=== PATIENT | female | born 1950 | race Caucasian/White ===

== ENCOUNTER 2017-11-10 18:28 | Emergency (ER) | payer MEDICARE, OTHER ==
[2017-11-10 18:51] VITALS: RESP 20; TEMP 96.8
[2017-11-10 20:55] VITALS: BP 104/66; PULSE 96; O2SAT 96
== END 2017-11-10 20:28 | disposition home or self-care (01) | DRG 914 ==
LOC: ED 18:28
DX: S09.90XA Unspecified injury of head, initial encounter (principal); S62.327A Displaced fracture of shaft of fifth metacarpal bone, left hand, initial encounter for closed fracture; W10.9XXA Fall (on) (from) unspecified stairs and steps, initial encounter
CPT/HCPCS: 70450; 73140; 99283

== ENCOUNTER 2017-11-11 04:19 | Emergency (ER) | payer MEDICARE, OTHER ==
[2017-11-11 05:15] LABS: BASOPHILS % (AUTO) 1 % (0-3); EOSINOPHILS % (AUTO) 1 % (0-9); HEMATOCRIT 35 % (35-47); MEAN CORPUSCULAR HGB CONC 34.8 gm/dl (32.0-36.0); MEAN CORPUSCULAR VOLUME 90 fL (81-99); MONOCYTES % (AUTO) 5.6 % (0-12); NEUTROPHILS % (AUTO) 70.1 % (37-80)
[2017-11-11 05:19] LABS: ALBUMIN 3.2 gm/dl (3.4-5.0); ALKALINE PHOSPHATASE 70 IU/L (46-116); ALT 17 IU/L (14-63); AST 10 IU/L (15-37); BILIRUBIN,TOTAL 0.4 mg/dl (0.2-1.0); BLOOD UREA NITROGEN 29 mg/dl (7-18); CALCIUM 8.3 mg/dl (8.5-10.1); CREATININE 1.12 mg/dl (0.60-1.00); GLOM FILT RATE 49 mL/min (>60); GLUCOSE 136 mg/dl (74-106); POTASSIUM 3.8 mMol/L (3.5-5.1); SODIUM 136 mMol/L (136-145)
[2017-11-11 05:34] VITALS: TEMP 97
[2017-11-11 05:57] VITALS: BP 122/73; PULSE 78; RESP 16; O2SAT 95
== END 2017-11-11 05:56 | disposition home or self-care (01) | DRG 204 ==
LOC: ED 04:19
DX: R06.02 Shortness of breath (principal); R10.10 Upper abdominal pain, unspecified; R11.0 Nausea
CPT/HCPCS: 80053; 84484; 85025; 93005; 99284

== ENCOUNTER 2017-11-20 09:39 | Day surgery (SDC) | payer MEDICARE, OTHER ==
[2017-11-20] MEDS ORDERED: BUPIVACAINE HCL 0.5% MPF 10 ML SOL ONE ×2 (09:55→12:52)
[2017-11-20] MEDS ORDERED: MIDAZOLAM 2 MG/2 ML SOL ONE ×2 (10:02→12:18)
[2017-11-20] MEDS ORDERED: PROPOFOL 500 MG/50 ML EMU IV ONE (10:02)
[2017-11-20] MEDS ORDERED: ONDANSETRON HCL 4 MG/2 ML SOL ONE ×3 (10:02→12:18)
[2017-11-20] MEDS ORDERED: CEFAZOLIN SODIUM 1 GM PDS ONE ×3 (10:02→12:34)
[2017-11-20] MEDS ORDERED: FENTANYL 100MCG/2ML SOL ONE ×2 (10:03→12:18)
[2017-11-20] MEDS ORDERED: PROPOFOL 10 MG/ML EMU IV ONE ×4 (12:18→13:50)
[2017-11-20] MEDS ORDERED: LIDOCAINE HCL 2% MPF SOL ONE (12:52)
[2017-11-20 15:04] VITALS: RESP 18
[2017-11-20 15:36] VITALS: BP 135/82; PULSE 72; TEMP 96.4; O2SAT 97
== END 2017-11-20 16:37 | disposition home or self-care (01) | DRG 563 ==
LOC: SURG 09:39
PROVIDERS: ATTEND Orthopaedic Surgery
DX: S62.617A Displaced fracture of proximal phalanx of left little finger, initial encounter for closed fracture (principal); N98.9 Complication associated with artificial fertilization, unspecified
CPT/HCPCS: 73140; 76000; 87210; 99282; J0690; J2250; J2405; J3010; A6402; J2704

== ENCOUNTER 2017-11-20 11:18 | Emergency (ER) | payer MEDICARE, OTHER ==
[2017-11-20 11:22] VITALS: BP 116/61; PULSE 82; RESP 20; TEMP 97.7; O2SAT 98
== END 2017-11-20 12:02 | disposition other institution (70) | DRG 761 ==
LOC: ED 11:18
DX: N89.8 Other specified noninflammatory disorders of vagina (principal)
CPT/HCPCS: 87210; 99282

== ENCOUNTER 2017-12-18 08:00 | Outpatient (CLI) | payer MEDICARE, OTHER ==
[2017-12-18 14:23] VITALS: O2SAT 99
== END 2017-12-18 08:01 | disposition home or self-care (01) | DRG 561 ==
LOC: CONVCARE 08:00
PROVIDERS: ATTEND Orthopaedic Surgery
DX: S62.617D Displaced fracture of proximal phalanx of left little finger, subsequent encounter for fracture with routine healing (principal)
CPT/HCPCS: 73140

== ENCOUNTER 2017-12-18 12:27 | Emergency (ER) | payer MEDICARE, OTHER ==
[2017-12-18] MEDS ORDERED: LORAZEPAM 2 MG/ML 10ML MDV 2 MG/ML VIAL IV ONE (12:35)
[2017-12-18] MEDS ORDERED: KETOROLAC TROMETHAMINE 30 MG/ML SOL IV ONE (12:40)
[2017-12-18] MEDS ORDERED: KETOROLAC TROMETHAMINE 30 MG/ML SOL ONE (12:44)
[2017-12-18 12:45] LABS: BASOPHILS % (AUTO) 0 % (0-3); EOSINOPHILS % (AUTO) 2 % (0-9); HEMATOCRIT 43 % (35-47); HEMOGLOBIN 14.9 gm/dl (12.0-15.5); LYMPHOCYTES % (AUTO) 32.8 % (10-50); MEAN CORPUSCULAR HEMOGLOBIN 31.4 pg (27.0-32.0); MEAN CORPUSCULAR HGB CONC 34.7 gm/dl (32.0-36.0); MEAN CORPUSCULAR VOLUME 91 fL (81-99); MONOCYTES % (AUTO) 6.8 % (0-12); NEUTROPHILS % (AUTO) 57.8 % (37-80)
[2017-12-18] MEDS ORDERED: LORAZEPAM 2 MG/ML SOL ONE (12:48)
[2017-12-18] MEDS ORDERED: SODIUM CHLORIDE 0.9% 1000ML 1,000 ML IV ONE (13:00)
[2017-12-18 13:02] LABS: ALBUMIN 3.8 gm/dl (3.4-5.0); BILIRUBIN,TOTAL 0.6 mg/dl (0.2-1.0); CALCIUM 9.2 mg/dl (8.5-10.1); CARBON DIOXIDE 20.9 mEq/L (21-32); CREATININE 0.94 mg/dl (0.60-1.00); POTASSIUM 3.9 mMol/L (3.5-5.1)
[2017-12-18 13:39] LABS: APPEARANCE,URINE Clear; BILIRUBIN,URINE NEGATIVE (NEGATIVE); COLOR,URINE Yellow; GLUCOSE, URINE (UA) NEGATIVE (NEGATIVE); KETONES,URINE NEGATIVE (NEGATIVE); LEUKOCYTE ESTERASE ,URINE TRACE (NEGATIVE); NITRATE,URINE POSITIVE (NEGATIVE); OCCULT BLOOD,URINE NEGATIVE (NEG-TRACE); UROBILINOGEN,URINE 0.2 (0.2-1.0 EU)
[2017-12-18 13:55] LABS: BACTERIA 3+ (< 1+); CRYSTALS NEGATIVE (0-3 AVE/HPF); EPITHELIAL CELLS 0-4 (SQUAMOUS); RBC,URINE NEG (0-3AV/HPF)
[2017-12-18 14:59] VITALS: BP 125/59; PULSE 80; RESP 22; TEMP 97.6; O2SAT 99
== END 2017-12-18 14:40 | disposition home or self-care (01) | DRG 103 ==
LOC: ED 12:27
DX: R51 Headache (principal); H53.8 Other visual disturbances; F41.9 Anxiety disorder, unspecified; S62.617D Displaced fracture of proximal phalanx of left little finger, subsequent encounter for fracture with routine healing; Z91.19 Patient's noncompliance with other medical treatment and regimen; M54.5 Low back pain
CPT/HCPCS: 36415; 73140; 80053; 81001; 85025; 85651; 87077; 87088; 87186; 96365; 96366; 96374; 96375; 99283; J1885; J2060

== ENCOUNTER 2018-01-01 14:19 | Outpatient (CLI) | payer MEDICARE, OTHER ==
[2017-12-18 14:59] VITALS: O2SAT 99
== END 2018-01-01 14:20 | disposition home or self-care (01) | DRG 561 ==
LOC: CONVCARE 14:19
PROVIDERS: ATTEND Orthopaedic Surgery
DX: S62.617D Displaced fracture of proximal phalanx of left little finger, subsequent encounter for fracture with routine healing (principal)
CPT/HCPCS: 73140